=== PATIENT | male | born 1950 | race Caucasian/White ===

== ENCOUNTER 2022-06-02 10:05 | Emergency (ER) | payer MEDICARE ==
[~2022-06-02] VITALS: Ht 180.3 cm; Wt 79.4 kg
--- NOTE | 2022-06-02 10:38 | NUR ---
PT IS IN ROOM #2A. DR BOOTH EVALUATED THE PT.
--- NOTE | 2022-06-02 13:00 | NUR ---
PT WAS D/C'd TO HOME. D/C INSTRUCTIONS GIVEN TO THE PT AND TO AMBULANCE TRANSPORTATION TEAM.
[2022-06-02 13:02] VITALS: BP 142/82
== END 2022-06-02 13:49 ==
LOC: ER 10:05
DX: Z04.3 Encounter for examination and observation following other accident (principal); F03.90 Unspecified dementia, unspecified severity, without behavioral disturbance, psychotic disturbance, mood disturbance, and anxiety
CPT/HCPCS: A4663

== ENCOUNTER 2024-02-20 08:26 | Inpatient (IN) | payer MEDICARE ==
[~2024-02-20] VITALS: Ht 172.7 cm; Wt 95.7 kg
[2024-02-20 08:48] LABS: BASOPHILS % (AUTO) 0.3 % (0.0-2.0); EOSINOPHILS # (AUTO) 0.1 K/uL (0.0-0.7); EOSINOPHILS % (AUTO) 1.8 % (0.0-7.0); HEMATOCRIT 52.9 % (36.7-47.1); HEMOGLOBIN 17.7 g/dL (12.5-16.3); LYMPHOCYTES # (AUTO) 2.8 K/uL (0.8-4.8); LYMPHOCYTES % (AUTO) 38.7 % (20.5-51.5); MEAN CORPUSCULAR HEMOGLOBIN 30.7 uug (23.8-33.4); MEAN CORPUSCULAR HGB CONC 33 g/dL (32.5-36.3); MEAN CORPUSCULAR VOLUME 91.9 fL (73.0-96.2); MONOCYTES # (AUTO) 0.6 K/uL (0.1-1.30); MONOCYTES % (AUTO) 7.7 % (0.0-11.0); NEUTROPHILS # (AUTO) 3.8 K/uL (1.8-8.9); NEUTROPHILS % (AUTO) 51.5 % (38.5-71.5); PLATELET COUNT (AUTO) 187 K/uL (152-348); RED BLOOD CELL COUNT(AUTO) 5.75 MIL/uL (4.06-5.63); RED CELL DISTRIBUTION WIDTH 14.4 % (12.1-16.2); WHITE BLOOD COUNT (AUTO) 7.3 K/uL (3.6-10.2)
[2024-02-20] MEDS: IV NORMAL SALINE 1000 ML BAG IV ONE (08:51)
[2024-02-20] MEDS ORDERED: VALP250S22 PO (08:52)
[2024-02-20] MEDS ORDERED: GUAI120013 PO (08:52)
[2024-02-20] MEDS ORDERED: QUET25TA PO ×2 (08:52)
[2024-02-20] MEDS ORDERED: POLY250017 PO (08:52)
[2024-02-20] MEDS ORDERED: DIPH25CA83 PO (08:52)
[2024-02-20] MEDS ORDERED: METO25TA6 PO (08:52)
[2024-02-20] MEDS ORDERED: FINA5TAB11 PO (08:52)
[2024-02-20] MEDS ORDERED: TAMS-3 PO (08:52)
[2024-02-20] MEDS ORDERED: DEXT15SY3 PO (08:52)
[2024-02-20] MEDS ORDERED: ACET-73 PO (08:52)
[2024-02-20] MEDS ORDERED: LORA0.5T48 PO (08:52)
[2024-02-20] MEDS ORDERED: TRAM50TA2 PO (08:52)
[2024-02-20] MEDS ORDERED: SENN-291 PO (08:52)
[2024-02-20] MEDS ORDERED: MUPI22OI2 TP (08:52)
[2024-02-20 09:19] LABS: ALANINE AMINOTRANSFERASE 14 U/L (16-63); ALBUMIN 3.1 g/dL (3.4-5.0); ALKALINE PHOSPHATASE 89 U/L (50-136); ASPARTATE AMINOTRANSFERASE 12 U/L (15-37); BILIRUBIN,DIRECT 0.2 mg/dL (0.0-0.2); BILIRUBIN,TOTAL 0.9 mg/dL (0.2-1.0); CALCIUM 8.5 mg/dL (8.5-10.1); CARBON DIOXIDE 21 mmol/L (21-32); CHLORIDE 106 mmol/L (98-107); CREATININE 1.2 mg/dL (0.6-1.3); GLUCOSE 126 mg/dL (74-106); POTASSIUM 3.6 mmol/L (3.5-5.1); SODIUM SERUM 140 mmol/L (136-145); TOTAL PROTEIN, SERUM 6.9 g/dL (6.4-8.2); UREA NITROGEN, BLOOD 13 mg/dL (7-18)
[2024-02-20 12:48] VITALS: BP 168/96; TEMP 97.9; O2SAT 96
[2024-02-20] MEDS ORDERED: SENNOSIDES/DOCUSATE SODIUM TABLET PO PRN (13:15)
[2024-02-20] MEDS ORDERED: diphenhydrAMINE 25 MG CAP PO PRN (13:15)
[2024-02-20] MEDS ORDERED: ONDANSETRON 4 MG/2 ML VIAL IV PRN (13:30)
[2024-02-20] MEDS ORDERED: IV NS 1000 ML 1,000 ML IV PRN (13:30)
[2024-02-20] MEDS ORDERED: SENN8.6T19 PO (14:10)
[2024-02-20] MEDS: REMEDY ESSENTIAL ZINC PASTE 113 GM TP PRN (14:13)
[2024-02-20] MEDS: ACETAMINOPHEN 325 MG TABLET PO PRN (14:13)
[2024-02-20] MEDS: levETIRAcetam 250 MG TABLET PO SCH (14:13)
[2024-02-20] MEDS ORDERED: SENNOSIDES 1 TABLET PO PRN (14:15)
[2024-02-20] MEDS ORDERED: MUPIROCIN 2% OINT 22 GM TUBE TP PRN (14:45)
[2024-02-20] MEDS: IV LACTATED RINGERS SOLUTION 1,000 ML IV SCH (14:48)
[2024-02-20 15:42] VITALS: BP 160/97; TEMP 97.5; O2SAT 99
[2024-02-20] MEDS ORDERED: MUPIROCIN 2% OINT 22 GM TUBE TP SCH (17:00)
[2024-02-20] MEDS: QUETIAPINE FUMARATE 25 MG TABLET PO SCH (17:26)
[2024-02-20] MEDS: VALPROIC ACID 250 MG/5 ML LIQUID UDC PO SCH (17:26)
[2024-02-20 23:00] VITALS: O2SAT 99
[2024-02-21 03:52] VITALS: BP 106/61; TEMP 97.7
[2024-02-21 06:46] LABS: BASOPHILS % (AUTO) 0.4 % (0.0-2.0); EOSINOPHILS # (AUTO) 0.1 K/uL (0.0-0.7); EOSINOPHILS % (AUTO) 1.5 % (0.0-7.0); HEMOGLOBIN 16.3 g/dL (12.5-16.3); LYMPHOCYTES % (AUTO) 31.1 % (20.5-51.5); MEAN CORPUSCULAR HEMOGLOBIN 31.1 uug (23.8-33.4); MEAN CORPUSCULAR HGB CONC 34 g/dL (32.5-36.3); MEAN CORPUSCULAR VOLUME 91.4 fL (73.0-96.2); MONOCYTES # (AUTO) 0.6 K/uL (0.1-1.30); MONOCYTES % (AUTO) 8.8 % (0.0-11.0); NEUTROPHILS # (AUTO) 3.8 K/uL (1.8-8.9); NEUTROPHILS % (AUTO) 58.2 % (38.5-71.5); PLATELET COUNT (AUTO) 176 K/uL (152-348); RED BLOOD CELL COUNT(AUTO) 5.26 MIL/uL (4.06-5.63); WHITE BLOOD COUNT (AUTO) 6.5 K/uL (3.6-10.2)
[2024-02-21 06:54] LABS: DIFFERENTIAL COMMENT 1
[2024-02-21 07:02] LABS: CALCIUM 8.4 mg/dL (8.5-10.1); CARBON DIOXIDE 27 mmol/L (21-32); CHLORIDE 108 mmol/L (98-107); CHOLESTEROL 154 mg/dL (<200); CREATININE 0.9 mg/dL (0.6-1.3); GLUCOSE 91 mg/dL (74-106); HDL CHOLESTEROL 35 mg/dL (40-60); MAGNESIUM 2.2 mg/dL (1.8-2.4); PHOSPHOROUS 2.7 mg/dL (2.5-4.9); POTASSIUM 3.7 mmol/L (3.5-5.1); SODIUM SERUM 141 mmol/L (136-145); TRIGLYCERIDES 72 MG/DL (30-150); UREA NITROGEN, BLOOD 9 mg/dL (7-18)
[2024-02-21 08:00] VITALS: BP 151/74; TEMP 97.2; O2SAT 97
[2024-02-21] MEDS: QUETIAPINE FUMARATE 25 MG TABLET PO SCH (08:53)
[2024-02-21] MEDS: METOPROLOL TARTRATE 25 MG TABLET PO SCH (08:53)
[2024-02-21] MEDS: FINASTERIDE 5 MG TABLET PO SCH (08:54)
[2024-02-21 12:00] VITALS: BP 154/94; TEMP 97.8; O2SAT 97
[2024-02-21 16:00] VITALS: BP 156/86; TEMP 97.6; O2SAT 97
[2024-02-21 17:09] VITALS: O2SAT 98
[2024-02-21 20:05] VITALS: BP 122/87; TEMP 98.2; O2SAT 100
[2024-02-21] MEDS: TAMSULOSIN HCL 0.4 MG CAP.SR.24H PO SCH (20:21)
[2024-02-22 05:00] VITALS: O2SAT 98
[2024-02-22 05:24] VITALS: BP 126/60; TEMP 98; O2SAT 98
[2024-02-22 07:48] VITALS: BP 150/87; TEMP 97.2; O2SAT 97
[2024-02-22] MEDS ORDERED: LEVE250T2 PO (11:08)
[2024-02-22 16:00] VITALS: BP 154/91; TEMP 97.6; O2SAT 97
== END 2024-02-22 16:30 | DRG 100 ==
LOC: ER 08:26 → TELE3 11:45 → MEDSURG3 02-22 09:53
PROVIDERS: ADMIT Nurse Practitioner Acute Care; ATTEND Nurse Practitioner Acute Care
DX: G40.909 Epilepsy, unspecified, not intractable, without status epilepticus (principal); G93.41 Metabolic encephalopathy; F03.93 Unspecified dementia, unspecified severity, with mood disturbance; F03.94 Unspecified dementia, unspecified severity, with anxiety; E86.0 Dehydration; R26.9 Unspecified abnormalities of gait and mobility; G31.9 Degenerative disease of nervous system, unspecified; K59.00 Constipation, unspecified; Z79.899 Other long term (current) drug therapy
CPT/HCPCS: 36415; 70450; 71045; 83735; 84100; 84443; 84484; 85025; 93005; A4606; A4663; G0378; J7040; J7120